=== PATIENT | female | born 1995 | race Caucasian/White ===

== ENCOUNTER 2019-08-02 12:37 | Emergency (ER) | payer MEDICAID, SELFPAY ==
[2019-08-02] MEDS ORDERED: Ciprofloxacin HCL/Dexameth Otic Drops 7.5 ml Bottle ONE (13:53)
[2019-08-02] MEDS ORDERED: Dexamethasone 4 MG TAB ONE (13:53)
== END 2019-08-02 14:00 | disposition home or self-care (01) ==
LOC: ERS 12:37
DX: H66.91 Otitis media, unspecified, right ear (principal)
CPT/HCPCS: 99282; J8540

== ENCOUNTER 2019-08-04 15:59 | Emergency (ER) | payer MEDICAID ==
[2019-08-04 17:51] LABS: #Basophils 0.1 thou/uL (0.0-0.2); #Eosinphils 0.2 thou/uL (0.0-0.7); #Lymphocytes 1.5 thou/uL (1.20-3.40); #Monocytes 0.7 thou/uL (0.11-0.59); #Neutrophils 4.4 thou/uL (1.40-6.50); %Eosinophils 2.8 % (0.0-10.0); %Lymphocytes 21.9 % (21.0-51.0); %Monocytes 9.8 % (0.0-10.0); %Neutrophils 64.5 % (42.0-75.0); Hemoglobin 14.6 g/dL (12.0-16.0); Mean Corpuscular HGB CONC 32.8 g/dL (32.0-36.0); Mean Corpuscular Hemoglobin 30.2 pg (27.0-31.0); Mean Corpuscular Volume 92.2 fL (78.0-98.0); Mean Platelet Volume 8.1 fL (7.4-10.4); Platelet Count 257 thou/uL (130-400); RBC Distribution Width 10.3 % (11.5-14.5); Red Blood Cell (RBC) Count 4.81 mill/uL (4.20-5.40); White Blood Cell (WBC) Count 6.8 thou/uL (4.8-10.8)
[2019-08-04 18:13] LABS: ALT (SGPT) 12 U/L (8-55); AST (SGOT) 14 U/L (5-34); Albumin 4.1 g/dL (3.5-5.0); Alkaline Phosphatase 86 U/L (40-110); Anion Gap 13 mmol/L (10-20); BUN (Urea Nitrogen) 11 mg/dL (7.0-18.7); Bilirubin, Total 0.5 mg/dL (0.2-1.2); Calc. Creatinine Clearance 0 mL/min (70-130); Calcium 9.2 mg/dL (7.8-10.44); Carbon Dioxide 28 mmol/L (22-29); Chloride 104 mmol/L (98-107); Estimated GFR-MDRD 74; Globulin 3.1 g/dL (2.4-3.5); Glucose 77 mg/dL (70-105); Potassium 4.2 mmol/L (3.5-5.1); Protein, Total 7.2 g/dL (6.0-8.3); Sodium 141 mmol/L (136-145)
== END 2019-08-04 18:03 | disposition home or self-care (01) ==
LOC: ERS 15:59
DX: G51.0 Bell's palsy (principal); H60.91 Unspecified otitis externa, right ear; H66.91 Otitis media, unspecified, right ear
CPT/HCPCS: 36415; 80053; 85025; 99284